=== PATIENT | female | born 1945 | race Caucasian/White ===

== ENCOUNTER 2017-05-19 10:57 | Day surgery (SDC) | payer MEDICARE, BC ==
[~2017-05-19] VITALS: Ht 165.1 cm; Wt 89.2 kg
[~2017-05-19 10:57] MED LIST: ASPI81CH PO; CALCAVITD PO; CLOB.05TC; FLONASE ALLERG9.9 ML NS; LIDO2TG30; Multiple Vitam1 EAC1 PO; Ocuvite Softge1 EAC1 PO; Prinivil10 MG PO
[2017-05-19] MEDS ORDERED: ASPI325 PO (12:04)
== END 2017-05-19 15:26 | disposition home or self-care (01) ==
LOC: ORSCSDS 10:57
PROVIDERS: Podiatrist Foot & Ankle Surgery
PROC: 0QSP04Z Reposition Left Metatarsal with Internal Fixation Device, Open Approach (ICD-10-PCS; principal; 2017-05-19 12:30)
PROC: 0SGN04Z Fusion of Left Metatarsal-Phalangeal Joint with Internal Fixation Device, Open Approach (ICD-10-PCS; principal; 2017-05-19 12:30)
DX: M20.12 Hallux valgus (acquired), left foot (principal); I10 Essential (primary) hypertension; Z79.899 Other long term (current) drug therapy; Z79.82 Long term (current) use of aspirin
CPT/HCPCS: C1713; C1769; J0171; J0690; J1100; J2250; J2405; J2550; J2765; J3010; J7120

== ENCOUNTER 2018-06-23 12:58 | Day surgery (SDC) | payer MEDICARE, BC ==
[~2018-06-23] VITALS: Ht 165.1 cm; Wt 90.9 kg
[~2018-06-23 12:58] MED LIST changes: +ASPI325 PO; +Norvasc2.5 MG PO
[2018-06-23] MEDS ORDERED: CETI5 PO (13:32)
[2018-06-23] MEDS ORDERED: Ocuvite Softge1 EAC1 PO (13:33)
== END 2018-06-23 15:04 | disposition home or self-care (01) ==
LOC: ORSCSDS 12:58
DX: K21.9 Gastro-esophageal reflux disease without esophagitis (principal); K31.89 Other diseases of stomach and duodenum; F45.8 Other somatoform disorders; I10 Essential (primary) hypertension; Z79.82 Long term (current) use of aspirin; Z79.899 Other long term (current) drug therapy
CPT/HCPCS: 88305; 88342; J7120

== ENCOUNTER 2023-05-27 08:28 | Day surgery (SDC) | payer MEDICARE, BC ==
[~2023-05-27] VITALS: Ht 165.1 cm; Wt 90.6 kg
[2023-05-27] VITALS (16 sets, daily range): BP systolic 135–174; BP diastolic 69–97
[~2023-05-27 08:28] MED LIST changes: +ACET500 PO; -CALCAVITD PO; +CETI5 PO; +CLIN1TS VAG; +Calcium/Vitamin D (6 PO; +Hair, Skin & N1 EACH PO; +IBUP200 PO; -Multiple Vitam1 EAC1 PO; +TURMERIC500 M2 PO
--- NOTE | 2023-05-27 16:03 | NUR ---
SHIFT SUMMARY PT A&OX4, VSS/RA, STAR PO, VOIDING, AMB 1 PP MOD W/FWW & GB, UP TO CHAIR, PAIN TREATED PER EMAR, IVF @ 70 MLS/HR AND ABX PER EMAR. WILL REPORT TO ONCOMING NOC JAIR.
[2023-05-28 00:25] VITALS: BP 114/54
[2023-05-28 05:42] VITALS: BP 115/53
[2023-05-28 06:49] LABS: BASOPHILS ABSOLUTE AUTO 0.02 K/mm3 (0.00-0.23); BASOPHILS PERCENT AUTO 0 % (0-2); EOSINOPHILS ABSOLUTE AUTO 0.02 K/mm3 (0.00-0.68); EOSINOPHILS PERCENT AUTO 0 % (0-6); Hematocrit 32.8 % (33.0-51.0); Hemoglobin 10.9 g/dL (11.5-16.0); IMMATURE GRAN ABSOLUTE AUTO 0.04 K/mm3 (0.00-0.10); IMMATURE GRAN PERCENT AUTO 0 % (0-1); LYMPHOCYTES ABSOLUTE AUTO 1.37 K/mm3 (0.84-5.20); LYMPHOCYTES PERCENT AUTO 13 % (21-46); MONOCYTES ABSOLUTE AUTO 1.07 K/mm3 (0.16-1.47); MONOCYTES PERCENT AUTO 10 % (4-13); Mean Corpuscular HGB 30.2 pg (26.0-34.0); Mean Corpuscular HGB Conc 33.2 g/dL (31.5-36.5); Mean Corpuscular Volume 91 fL (80-100); NEUTROPHILS PERCENT AUTO 77 % (41-73); Platelet Count 240 K/mm3 (150-400); RDW Coefficient Variation 13.9 % (11.7-14.2); RDW Standard Deviation 46.4 fL (35.1-46.3); Red Blood Cell Count 3.61 M/mm3 (3.80-5.20); White Blood Cell Count 10.82 K/mm3 (4.00-11.30)
[2023-05-28 07:15] LABS: Bun/Creatinine Ratio 40.4 (12.0-20.0); Calcium, Blood 8.5 mg/dL (8.5-10.1); Creatinine, Blood 0.57 mg/dL (0.40-1.00); Potassium, Blood 4.3 mmol/L (3.5-5.5)
--- NOTE | 2023-05-28 07:32 | NUR ---
POD 1 S/P R TKA. PT VSS T/O NIGHT. DRESSING CDI. PEDAL PULSES AND CAP REFILL WNL, PT REP SENSATION AT BASELINE. PAIN MGD W/5MG OXYCODONE AND SCHEDULED TORADOL W/REP RELIEF. PT HAD OCC MILD NAUSEA, EMESIS X1, REP RESOLVED THIS AM. PT VOIDING URINE W/O DIFFICULTY. PT AMB IN ROOM W/FWW+1 ASSIST. PLAN TO MOBILIZE W/PT AND DC HOME WHEN CLEARED.
[2023-05-28 07:39] VITALS: BP 126/63
[2023-05-28] MEDS ORDERED: Aspir 8181 MG PO (10:01)
[2023-05-28] MEDS ORDERED: Percocet 5-3251 EACH PO (10:01)
--- NOTE | 2023-05-28 11:54 | NUR ---
DISCHARGE PATIENT WORKED WITH THERAPY, TOLERATING PAIN MEDICATIONS, TOLERATING PO INTAKE. AQUACEL TO KNEE C/D/I. DISCHARED VIA PRIVATE VEHICLE WITH ALL BELONGINGS.
--- NOTE | 2023-06-02 15:18 | NUR ---
06/02/23 1518 Alma Frost VERIFICATIONS: EDIT CHART.
== END 2023-05-28 11:43 | disposition home or self-care (01) ==
LOC: ORSCMMR 08:28 → ORD 10:00 → SURS 14:30 → ORSCMMR 05-28 11:43
PROVIDERS: Orthopaedic Surgery
PROC: 0SRC0JA Replacement of Right Knee Joint with Synthetic Substitute, Uncemented, Open Approach (ICD-10-PCS; principal; 2023-05-27 10:00)
DX: M17.11 Unilateral primary osteoarthritis, right knee (principal); I10 Essential (primary) hypertension; Z79.899 Other long term (current) drug therapy
CPT/HCPCS: 36415; 73560-RT; 80048; 85025; 97110; 97116; 97162; 97530; A9270; C1713; C1776; J0171; J0690; J0735; J1100; J1885; J2250; J2371; J2405; J2704; J2765; J2795; J3010; J7120